=== PATIENT | female | born 1965 | race Caucasian/White ===

== ENCOUNTER → 2021-12-14 | Outpatient (CLI) | payer OTHER ==
[2021-12-20 14:08] LABS: HPV 16 Negative (Negative); HPV 18 Negative (Negative); HPV OTHER HR TYPES Negative (Negative)
== END ==
LOC: LAB SHORT 09:30
PROVIDERS: Family Medicine
DX: Z01.419 Encounter for gynecological examination (general) (routine) without abnormal findings (principal)
CPT/HCPCS: 87624; G0145

== ENCOUNTER → 2023-05-24 | Outpatient (CLI) | payer OTHER | LOC: LAB 11:39 → LAB SHORT 11:39 | DX: B35.3 Tinea pedis (principal) | CPT/HCPCS: 87102 ==

== ENCOUNTER 2025-07-02 | Emergency (ER) | payer BC ==
[~2025-07-02] VITALS: Ht 157.5 cm; Wt 54.4 kg
[2025-07-02] MEDS ORDERED: Adult Glycerin1 EACH PR (01:57)
[2025-07-02] MEDS ORDERED: MIRALAX17 GM PO (01:57)
[2025-07-02 02:09] VITALS: BP 125/82
== END 2025-07-02 02:09 | disposition home or self-care (01) ==
LOC: ER
DX: K59.00 Constipation, unspecified (principal); Z88.5 Allergy status to narcotic agent
CPT/HCPCS: 74018; 99283-25

== ENCOUNTER 2025-08-29 00:30 | Emergency (ER) | payer BC ==
[~2025-08-29] VITALS: Ht 157.5 cm; Wt 54.4 kg
[~2025-08-29 00:30] MED LIST: Adult Glycerin1 EACH PR; MIRALAX17 GM PO
[2025-08-29 02:13] LABS: BASOPHILS ABSOLUTE AUTO 0.02 K/mm3 (0.00-0.23); BASOPHILS PERCENT AUTO 0 % (0-2); EOSINOPHILS ABSOLUTE AUTO 0.04 K/mm3 (0.00-0.68); EOSINOPHILS PERCENT AUTO 1 % (0-6); Hematocrit 39.7 % (33.0-51.0); Hemoglobin 13.7 g/dL (11.5-16.0); IMMATURE GRAN ABSOLUTE AUTO 0.00 K/mm3 (0.00-0.10); IMMATURE GRAN PERCENT AUTO 0 % (0-1); LYMPHOCYTES ABSOLUTE AUTO 1.13 K/mm3 (0.84-5.20); LYMPHOCYTES PERCENT AUTO 23 % (21-46); MONOCYTES ABSOLUTE AUTO 0.29 K/mm3 (0.16-1.47); MONOCYTES PERCENT AUTO 6 % (4-13); Mean Corpuscular HGB Conc 34.5 g/dL (31.5-36.5); Mean Corpuscular Volume 87 fL (80-100); NEUTROPHILS ABSOLUTE AUTO 3.44 K/mm3 (1.96-9.15); NEUTROPHILS PERCENT AUTO 70 % (41-73); NRBC ABSOLUTE 0.00 K/mm3 (0.00-0.02); NRBC Auto 0.0 /100 WBC (0.0-0.2); Platelet Count 220 K/mm3 (150-400); RDW Coefficient Variation 12.8 % (11.7-14.2); RDW Standard Deviation 40.6 fL (35.1-46.3)
[2025-08-29 02:14] LABS: Alanine Aminotransfer (ALT/SGP 31.0 U/L (12-78); Albumin, Blood 4.3 g/dL (3.4-5.0); Albumin/Globulin Ratio 1.3 (0.8-1.8); Anion Gap 11.0 mmol/L (3-11); Aspartate Aminotrans (AST/SGOT 24.0 U/L (12-37); Bilirubin, Total 0.6 mg/dL (0.1-1.0); Blood Urea Nitrogen 15.0 mg/dL (8-24); CO2, Blood 24.0 mmol/L (21-32); Calcium, Blood 9.3 mg/dL (8.5-10.1); Chloride, Blood 106.0 mmol/L (98-108); Creatinine, Blood 0.62 mg/dL (0.40-1.00); Globulin, Blood 3.2 g/dL (2.2-4.0); Glucose, Blood 126.0 mg/dL (70-99); Potassium, Blood 3.8 mmol/L (3.5-5.5); Sodium, Blood 137.0 mmol/L (136-145); Total Protein, Blood 7.5 g/dL (6.4-8.2)
[2025-08-29] MEDS ORDERED: NS 1,000 ML BAG IR SCH (02:45)
[2025-08-29] MEDS ORDERED: FentaNYL Citrate 50 MCG/ML 2 ML Injection IV ONE ×2 (02:50→06:15)
[2025-08-29] MEDS ORDERED: Ondansetron HCl 2 MG / ML 2ML Vial IV ONE (02:50)
[2025-08-29] MEDS ORDERED: NS 1,000 ML IV SCH (03:30)
[2025-08-29 04:06] LABS: Prothrombin Time Results 10.9 Sec (9.7-11.5)
[2025-08-29 04:27] LABS: Source, Urine Clean Catch
[2025-08-29 04:39] LABS: Bilirubin, Urine Neg (Neg); Glucose Qualitative, Urine Neg (Neg); Ketones, Urine 2+ (Neg); Leukocyte Esterase, Urine 3+ (Neg); Protein, Urine 1+ (Neg); Specific Gravity, Urine 1.015 (1.003-1.022); Urobilinogen, Urine NORM (Normal)
[2025-08-29 05:08] LABS: Color, Urine Pale Yellow (P-Yellow)
[2025-08-29 05:10] LABS: White Blood Cells, Urine 50-100 /hpf (0-5)
[2025-08-29] MEDS ORDERED: Ketorolac Tromethamine 15mg Vial IV ONE (06:15)
[2025-08-29] MEDS ORDERED: HYDROmorphone HCl/Pf 1MG SYR IV ONE (06:20)
[2025-08-29 06:39] VITALS: BP 130/91
[2025-08-29] MEDS ORDERED: HYDROCODONE-AC1 EA13 PO (08:23)
[2025-08-29] MEDS ORDERED: HYDR1TAB94 PO (08:24)
[2025-09-02] MEDS ORDERED: Veetids 500500 MG PO (09:11)
== END 2025-08-29 08:54 | disposition home or self-care (01) ==
LOC: ER 00:30
PROVIDERS: Emergency Medicine; Student in an Organized Health Care Education/Training Program
DX: K59.00 Constipation, unspecified (principal); R80.9 Proteinuria, unspecified; R31.9 Hematuria, unspecified; Z88.8 Allergy status to other drugs, medicaments and biological substances
CPT/HCPCS: 74177; 76830; 76856; 80053; 81001; 81025; 83605; 83690; 85025; 85610; 86850; 86900; 86901; 87086; 87147; 96361; 96374-59; 96375; 99284-25; J1171; J1885; J2405; J3010; J7030; Q9967